=== PATIENT | male | born 1975 | race Native Hawaiian/Other Pacific Islander ===

== ENCOUNTER 2021-03-28 05:36 | Emergency (ER) | payer BC ==
[~2021-03-28] VITALS: Ht 170.2 cm; Wt 77.1 kg
[~2021-03-28 05:36] MED LIST: LIPITOR10 MG PO; OMEPRAZOLE40 MG PO; VENL37.511 PO
[2021-03-28 06:14] LABS: PLATELET COUNT 254 K/uL (142-355)
[2021-03-28 06:18] LABS: POTASSIUM 2.9 mmol/L (3.6-5.2)
[2021-03-28 09:07] VITALS: BP 110/83; TEMP 98.7
== END 2021-03-28 09:15 | disposition home or self-care (01) ==
LOC: ED 05:36
PROVIDERS: Hospitalist
DX: N13.2 Hydronephrosis with renal and ureteral calculous obstruction (principal); Z87.442 Personal history of urinary calculi
CPT/HCPCS: 36415; 80053; 83690; 85027; 96360; 96365; 96366; 96375; 96376; 99284; J1170; J1885; J1956; J2405